=== PATIENT | female | born 1935 | race Caucasian/White ===

== ENCOUNTER 2019-11-28 10:47 | Inpatient (IN) | payer OTHER ==
[~2019-11-28] VITALS: Ht 154.9 cm; Wt 50.0 kg
[~2019-11-28 10:47] MED LIST: ASA81 MG PO; ENALAPRIL MALEA10 MG NGT; LASIX20 MG PO; PLAVIX75 MG; TENORMIN50 M1; VASOFLEX FORTE1 CAP PO; VASOTEC5 MG PO; ZOCOR20 MG
[2019-11-28] MEDS ORDERED: VERELAN120 MG (10:58)
[2019-12-03] MEDS ORDERED: ENALAPRIL MALEA20 MG PO (11:46)
[2019-12-04] MEDS ORDERED: AVAPRO300 MG PO (12:56)
[2019-12-04] MEDS ORDERED: CLOPIDOGREL BIS75 MG PO (12:56)
[2019-12-04] MEDS ORDERED: NIFEDIPINE ER30 MG PO (12:56)
[2019-12-04] MEDS ORDERED: SIMVASTATIN20 MG PO (12:57)
[2019-12-04] MEDS ORDERED: HYDROCHLOROTHIA25 MG PO (12:57)
== END 2019-12-04 13:39 | disposition home or self-care (01) | DRG 292 ==
LOC: ER 10:47 → SURG 17:12
PROVIDERS: ADMIT Internal Medicine
PROC: B246ZZZ Ultrasonography of Right and Left Heart (ICD-10-PCS; principal; 2019-11-28)
PROC: CB2YYZZ Tomographic (Tomo) Nuclear Medicine Imaging of Respiratory System using Other Radionuclide (ICD-10-PCS; 2019-11-28)
PROC: B44HZZZ Ultrasonography of Bilateral Lower Extremity Arteries (ICD-10-PCS; 2019-11-29)
DX: I11.0 Hypertensive heart disease with heart failure (principal); I16.9 Hypertensive crisis, unspecified; I50.810 Right heart failure, unspecified; J44.9 Chronic obstructive pulmonary disease, unspecified; F17.200 Nicotine dependence, unspecified, uncomplicated; I27.9 Pulmonary heart disease, unspecified; S70.02XA Contusion of left hip, initial encounter; W18.30XA Fall on same level, unspecified, initial encounter; Y93.01 Activity, walking, marching and hiking; Y92.230 Patient room in hospital as the place of occurrence of the external cause
CPT/HCPCS: 71275

== ENCOUNTER 2021-11-14 14:25 | Emergency (ER) | payer OTHER ==
[~2021-11-14] VITALS: Ht 154.9 cm; Wt 47.6 kg
[~2021-11-14 14:25] MED LIST changes: +AVAPRO300 MG PO; +CLOPIDOGREL BIS75 MG PO; +ENALAPRIL MALEA20 MG PO; +HYDROCHLOROTHIA25 MG PO; +NIFEDIPINE ER30 MG PO; +SIMVASTATIN20 MG PO; +VERELAN120 MG
== END 2021-11-14 21:31 | disposition home or self-care (01) ==
LOC: ER 14:25
DX: L03.114 Cellulitis of left upper limb (principal); M77.8 Other enthesopathies, not elsewhere classified

== ENCOUNTER 2021-11-23 14:52 | Inpatient (IN) | payer OTHER ==
[~2021-11-23] VITALS: Ht 160 cm; Wt 38.6 kg
--- NOTE | 2021-11-23 15:51 | NUR ---
PACIENTE REFIERE TENGO ABBE ULCERA EN LA PIERNA DERECHA HACE MAS DE UN MES. PACIENTE REFIERE LA DIERON DE BRENDON DE JOSE J DE EMERGENCIAS EN DONDE LE ADMINISTRARON ANTIBIOTICOS POR VENA. AL DOROTHY DE HOY LA MISMA SIGUE CON CUIDADOS DE ULCERA EN EL HOGAR CON ENFERMERA. REFIERE QUE LA ENFERMERA LE DIJO QUE TENIA GUSANOS.
--- NOTE | 2021-11-23 16:33 | NUR ---
PTE EVALUADO POR DR. DODSON. JOSE ENRIQUE RODRIGUES ORIENTA A PTE SOBRE TRATAMIENTO A SEGUIR, EL CUAL REFIERE ENTENDER. EL MISMO COLECTA MUESTRAS Y CANALIZA PTE UTILIZANDO MEDIDAS ASEPTICAS Y HACE WOUND CARE EN EL AREA AFECTADA.
--- NOTE | 2021-11-24 00:29 | NUR ---
SE RECIBE PACIENTE DE TURNO ANTERIOR EN CAMA CON BARANDAS ELEVADAS, PENDIENTE CONSULTA CON DR. REBEKAH ALFRED POR ULCERA INFECTADA EN EL PIE RT.
--- NOTE | 2021-11-24 07:14 | NUR ---
SE RECIBE PACIENTE DE TURNO ANTERIOR, EN CAMA #06 CON BARANDAS LEEVDAS Y FRENOS AJUSTADOS POR SEGURIDAD. CON VENOPUNCION PATENTE, ANNELIESE DE ERITEMA Y EDEMA, AL MOMENTO EN SALINE LOCK. PENDIENTE CONSULTA CON DR. REBEKAH ALFRED POR CELULLITIS. SE MANTIENE PACIENTE EN OBSERVACION POR CAMBIOS.
[2021-11-25] MEDS ORDERED: FOLIC ACID1 MG (15:32)
[2021-12-04] MEDS ORDERED: VERAPAMIL HCL120 M3 PO (17:25)
[2021-12-04] MEDS ORDERED: CLOPIDOGREL BIS75 MG PO (17:25)
[2021-12-04] MEDS ORDERED: CHLORHEXIDINE118 M1 TOP (17:25)
[2021-12-04] MEDS ORDERED: AMOX-CLAV 875-1 EAC1 PO (17:25)
[2021-12-04] MEDS ORDERED: VASOTEC20 MG PO (17:25)
[2021-12-04] MEDS ORDERED: HYDRODIURIL12.5 MG PO (17:25)
[2021-12-04] MEDS ORDERED: CARdura 2MG TABLET PO (17:25)
[2021-12-04] MEDS ORDERED: INTESTINEX680 M1 PO (17:25)
[2021-12-04] MEDS ORDERED: SIMVASTATIN20 MG PO (17:25)
== END 2021-12-04 17:39 | disposition home or self-care (01) | DRG 603 ==
LOC: ER 14:52 → SEC-K 11-24 12:00 → MEDI 11-24 12:00
PROVIDERS: ADMIT Internal Medicine; ATTEND Internal Medicine
PROC: B44HZZZ Ultrasonography of Bilateral Lower Extremity Arteries (ICD-10-PCS; principal; 2021-11-24)
PROC: B246YZZ Ultrasonography of Right and Left Heart using Other Contrast (ICD-10-PCS; 2021-11-24)
DX: L03.115 Cellulitis of right lower limb (principal); L97.518 Non-pressure chronic ulcer of other part of right foot with other specified severity; B96.4 Proteus (mirabilis) (morganii) as the cause of diseases classified elsewhere; B95.61 Methicillin susceptible Staphylococcus aureus infection as the cause of diseases classified elsewhere; B95.1 Streptococcus, group B, as the cause of diseases classified elsewhere; B96.89 Other specified bacterial agents as the cause of diseases classified elsewhere; I73.89 Other specified peripheral vascular diseases; I10 Essential (primary) hypertension; I27.21 Secondary pulmonary arterial hypertension; I27.20 Pulmonary hypertension, unspecified; I70.203 Unspecified atherosclerosis of native arteries of extremities, bilateral legs; Z20.822 Contact with and (suspected) exposure to COVID-19

== ENCOUNTER → 2022-03-08 | Emergency (ER) | payer OTHER ==
[~2022-03-08] VITALS: Ht 152.4 cm; Wt 43.1 kg
[~2022-03-08] MED LIST changes: +AMOX-CLAV 875-1 EAC1 PO; +CARDURA1 MG PO; +CARdura 2MG TABLET PO; +CHLORHEXIDINE118 M1 TOP; +FOLIC ACID1 MG; +HYDRODIURIL12.5 MG PO; +INTESTINEX680 M1 PO; +VASOTEC20 MG PO; +VERAPAMIL HCL120 M3 PO
== END | disposition left against medical advice (07) ==
LOC: ER 17:49
DX: Z53.21 Procedure and treatment not carried out due to patient leaving prior to being seen by health care provider (principal)

== ENCOUNTER 2022-03-09 15:31 | Emergency (ER) | payer OTHER ==
[~2022-03-09] VITALS: Ht 152.4 cm; Wt 49.9 kg
== END 2022-03-09 20:54 | disposition home or self-care (01) ==
LOC: ER 15:31
DX: L97.919 Non-pressure chronic ulcer of unspecified part of right lower leg with unspecified severity (principal); Z88.6 Allergy status to analgesic agent; I10 Essential (primary) hypertension